=== PATIENT | male | born 1965 | race Caucasian/White ===

== ENCOUNTER 2024-02-18 12:25 | Outpatient (CLI) | payer BC ==
[2024-02-18 15:23] LABS: Anion Gap 16 mmol/L (10-20); BUN (Urea Nitrogen) 29 mg/dL (8.4-25.7); Calc. Creatinine Clearance 0 mL/min (70-130); Calcium 9.6 mg/dL (7.8-10.44); Carbon Dioxide 24 mmol/L (22-29); Chloride 109 mmol/L (98-107); Estimated GFR 57; Glucose 86 mg/dL (70-105); Potassium 3.6 mmol/L (3.5-5.1); Sodium 145 mmol/L (136-145)
== END 2024-02-18 12:26 | disposition home or self-care (01) ==
LOC: CSHLAB 12:25
PROVIDERS: ATTEND Specialist
DX: Z01.818 Encounter for other preprocedural examination (principal); J34.2 Deviated nasal septum; J34.3 Hypertrophy of nasal turbinates; J32.0 Chronic maxillary sinusitis
CPT/HCPCS: 80048; 93005; 93010

== ENCOUNTER 2024-02-21 09:43 | Day surgery (SDC) | payer BC ==
[2024-02-18 12:54] VITALS: BMI 30.2
[2024-02-21] MEDS ORDERED: AFRIN NASAL MIST 15 ML BOT ONE ×2 (10:25→12:15)
[2024-02-21] MEDS ORDERED: Oxymetazoline HCl 0.05% ( 15 ML ) ONE (10:30)
[2024-02-21] MEDS ORDERED: fentaNYL 50 mcg/mL 1 mL Vial ONE ×2 (12:10→13:48)
[2024-02-21] MEDS ORDERED: Lidocaine 1% PF 5 ML VIAL ONE (12:10)
[2024-02-21] MEDS ORDERED: PROPOFOL 40 ML ONE (12:10)
[2024-02-21] MEDS ORDERED: Ondansetron PF 4 MG/2 ML Vial ONE (12:10)
[2024-02-21] MEDS ORDERED: Rocuronium Bromide 10 MG/ML (10ML VIAL) ONE (12:10)
[2024-02-21] MEDS ORDERED: EPINEPHrine 1 MG/ML VIAL ONE (12:15)
[2024-02-21] MEDS ORDERED: Mupirocin 2% Ointment 22 GM Tube ONE (12:16)
[2024-02-21] MEDS ORDERED: Lidocaine 1% w/Epinephrine 1:200K 30 ML VIAL ONE (12:16)
[2024-02-21] MEDS ORDERED: methylPREDNISolone Acetate 40 mg/ml Vial ONE (12:17)
[2024-02-21] MEDS ORDERED: ePHEDrine Sulfate 50 MG/10 ML VIAL ONE (12:51)
[2024-02-21] MEDS ORDERED: Glycopyrrolate 0.2 MG/ML 5 ML SYRINGE ONE (12:56)
[2024-02-21] MEDS ORDERED: Hydrocodone-Acetamin 15 ML UDCUP ONE (14:20)
== END 2024-02-21 15:00 | disposition home or self-care (01) ==
LOC: CSHSDC 09:43
PROVIDERS: ATTEND Specialist
PROC: 099Q8ZZ Drainage of Right Maxillary Sinus, Via Natural or Artificial Opening Endoscopic (ICD-10-PCS; principal; 2024-02-21)
PROC: 099R8ZZ Drainage of Left Maxillary Sinus, Via Natural or Artificial Opening Endoscopic (ICD-10-PCS; principal; 2024-02-21)
PROC: 09TL8ZZ Resection of Nasal Turbinate, Via Natural or Artificial Opening Endoscopic (ICD-10-PCS; principal; 2024-02-21)
DX: J01.01 Acute recurrent maxillary sinusitis (principal); J34.2 Deviated nasal septum; J34.3 Hypertrophy of nasal turbinates; J32.0 Chronic maxillary sinusitis; K21.9 Gastro-esophageal reflux disease without esophagitis; G47.33 Obstructive sleep apnea (adult) (pediatric); I10 Essential (primary) hypertension; E78.5 Hyperlipidemia, unspecified; F32.A Depression, unspecified; Z98.890 Other specified postprocedural states; Z79.899 Other long term (current) drug therapy; Z88.8 Allergy status to other drugs, medicaments and biological substances
CPT/HCPCS: J0171; J1010; J2405; J2704; J3010